=== PATIENT | female | born 2000 | race African-American/Black ===

== ENCOUNTER 2023-06-16 20:46 | Emergency (ER) | payer BC, MEDICAID ==
[~2023-06-16] VITALS: Ht 165.1 cm; Wt 72.6 kg
[2023-06-16 20:51] VITALS: BP 129/76; PULSE 68; RESP 18; O2SAT 99
[2023-06-16 22:11] VITALS: TEMP 98.6
[2023-06-16] MEDS ORDERED: ACETAMINOPHEN 325MG TABLET PO ONE (22:15)
== END 2023-06-16 22:15 | disposition home or self-care (01) ==
LOC: ER 20:46
DX: Q38.3 Other congenital malformations of tongue (principal)
CPT/HCPCS: 99281